=== PATIENT | male | born 1990 | race Caucasian/White ===

== ENCOUNTER 2019-03-02 10:43 | Emergency (ER) | payer OTHER ==
[2019-03-02] MEDS ORDERED: Lactated Ringers 1,000 ML IV ONE (10:49)
[2019-03-02] MEDS ORDERED: Ondansetron 4 MG/2 ML SDV IVPUSH ONE (10:49)
[2019-03-02] MEDS ORDERED: Pantoprazole 40 MG Vial IVPUSH ONE (10:49)
[2019-03-02] MEDS ORDERED: Famotidine 20 MG/2 ML SDV IVPUSH ONE (10:49)
--- NOTE | 2019-03-02 10:49 | EDM.PDOC ---
ED HPI GENERAL MEDICAL PROBLEM - General Chief Complaint: Abdominal Pain Stated Complaint: Abd pain Time Seen by Provider: 03/02/19 10:45 Source of Information: Reports: Patient, Old Records ([facility] chart/EMR including EMR records from [place]) History Limitations: Reports: No Limitations - History of Present Illness INITIAL COMMENTS - FREE TEXT/NARRATIVE: Patient was brought to the emergency room via private automobile by his paternal uncle for evaluation of 10/10 bilateral upper quadrant 10/10 abdominal pain and cramping with symptoms starting at about 3 AM this morning. He has had some moderate nausea with 5 episodes of emesis since earlier this morning. He did have a normal bowel movement at 9 PM yesterday evening, however. Patient has apparently had a two-year history of monthly attacks similar to the above episode with only limited workup to this point including abdominal ultrasound in December as below. Note that the patient did take a stool softener at 5 AM morning with no other medications to this point. No recent history of other abdominal pain, heartburn, diarrhea, melena, gross hematochezia, or any food intolerance, including fatty foods, etc.. He did eat a BLT sandwich and sweet corn yesterday evening. He denies any gross hematuria, colic, or other UTI symptoms. The patient denies any chest pain/pressure, heart flutter, dizziness, orthostasis, orthopnea, diaphoresis, paresthesias, recent decreased exercise tolerance, or any other anginal-type symptoms. The patient also denies any recent fever, cough, wheezing, dyspnea, etc.. No history of food poisoning or known exposure to infection. Onset: Today Onset Date: 03/02/19 Onset Time: 03:00 Duration: Constant, Getting Worse Location: Reports: Abdomen. Denies: Head, Face, Neck, Chest, Back, Upper Extremity, Left, Upper Extremity, Right, Radiates to Quality: Reports: Same as Previous Episode, Stabbing, Other (Cramping) Severity: Severe Improves with: Reports: None Worsens with: Reports: None Context: Reports: Other (As above). Denies: Sick Contact, Trauma Associated Symptoms: Reports: Nausea/Vomiting. Denies: Confusion, Chest Pain, Cough, Diaphoresis, Fever/Chills, Headaches, Loss of Appetite, Malaise, Seizure , Shortness of Breath, Syncope, Weakness Treatments [employer] DES[employer]: Reports: Other Medication(s) (As above) Abdominal Pain Score (Numeric/FACES): 10 - Related Data Allergies Allergy/AdvReac Type Severity Reaction Status Date / Time No Known Allergies Allergy Verified 03/02/19 10:45 Home Meds: Home Meds . [No Known Home Meds] 03/02/19 [History] Past Medical History HEENT History: Reports: None. Denies: Allergic Rhinitis, Hard of Hearing, Impaired Vision, Otitis Media, Retinal Detachment Cardiovascular History: Reports: None, Other (See Below). Denies: Afib, Aneurysm, Arrhythmia, Blood Clots/VTE/DVT, CAD, Heart Failure, Heart Murmur, High Cholesterol, Hypertension, Syncope Other Cardiovascular History: He does not know his cholesterol status with fatty liver as below. Respiratory History: Reports: None. Denies: Asthma, Bronchitis, Recurrent, COPD , Intubation, Previous, PE, Pneumonia, Recurrent, Pneumothorax, Sleep Apnea Gastrointestinal History: Reports: Other (See Below). Denies: Bowel Obstruction , Celiac Disease, Cholelithiasis, Fecal Incontinence, Gastritis, GERD, GI Bleed , Hepatitis, Hiatal Hernia, Inflammatory Bowel Disease, Irritable Bowel Syndrome , Jaundice, Pancreatitis, PUD Other Gastrointestinal History: Chronic nonspecific abdominal pain. Fatty liver. Genitourinary History: Reports: None. Denies: Acute Renal Failure, BPH, Chronic Renal Insuffiency, Renal Calculus, STD, UTI, Recurrent Musculoskeletal History: Reports: None. Denies: Arthritis, Back Pain, Chronic, Fracture, Gout, Neck Pain, Chronic, Osteoarthritis, RA, SLE Neurological History: Reports: None, Headaches, Chronic. Denies: Concussion, CVA, Head Trauma, Migraines, MS, Neuropathy, Peripheral, Parkinson's, Seizure, TIA Psychiatric History: Reports: Addiction, Anxiety, Depression, Other (See Below) . Denies: Abuse, Victim of, ADD, ADHD, Psych Hospitalization(s), Suicide Attempt, Suicidal Ideation Other Psychiatric History: Probable alcohol abuse since age 23 although no history of DWI, alcohol treatment, etc. Note he did decrease his alcohol intake since he has been having abdominal symptoms during the last couple of months. Anxiety depression disorder with no previous medical treatment. Endocrine/Metabolic History: Reports: None. Denies: Diabetes, Type I, Diabetes , Type II, Diabetes Mellitus, Type 3c, Hypothyroidism, IDDM Hematologic History: Denies: Anemia, Blood Transfusion(s), Iron Deficiency Immunologic History: Reports: None. Denies: AIDS, HIV, SLE Oncologic (Cancer) History: Reports: None. Denies: Basal Cell Carcinoma, Hodgkin's Lymphoma, Leukemia, Lymphoma, Malignant Melanoma, Non-Hodgkin's Lymphoma, Prostate, Squamous Cell Carcinoma Dermatologic History: Denies: Eczema, Psoriasis - Infectious Disease History Infectious Disease History: Reports: None (Patient is uncertain) - Past Surgical History Head Surgeries/Procedures: Reports: None HEENT Surgical History: Reports: Oral Surgery, Other (See Below). Denies: Adenoidectomy, Eye Surgery, Laser Surgery, LASIK, Myringotomy w Tube(s), Naso- Sinus Surgery, Tonsillectomy Other HEENT Surgeries/Procedures: [place] teeth extraction at age 18 Cardiovascular Surgical History: Reports: None. Denies: Varicose Respiratory Surgical History: Reports: None. Denies: Thoracentesis GI Surgical History: Reports: None. Denies: Appendectomy, Cholecystectomy, Colonoscopy, EGD, Hernia, Abdominal, Hernia, Inguinal, Hernia Repair/Other Male Surgical History: Reports: Circumcision, Other (See Below). Denies: Vasectomy Other Male Surgeries/Procedures: Circumcision as an infant Endocrine Surgical History: Reports: None. Denies: Thyroid Biopsy Neurological Surgical History: Reports: None. Denies: C-Spine, Discectomy, Laminectomy, Lumbar Spine, Sacral Spine, Scoliosis, Spinal Fusion, Thoracic Spine, Vertebroplasty Musculoskeletal Surgical History: Reports: None. Denies: Arthroscopic Procedure , Carpal Tunnel, Ganglion Cyst, Joint Replacement, ORIF, Shoulder Surgery Oncologic Surgical History: Reports: None Dermatological Surgical History: Reports: None - Past Imaging History Past Imaging History: Reports: Ultrasound (Right upper quadrant abdominal ultrasound on 12/28/18.) Social & Family History - Family History GI: Reports: Other (See Below). Denies: Celiac Disease, Colon Polyps, Inflammatory Bowel Disease, Irritable Bowel Syndrome Other GI Family History: Father with hemicolectomy for unknown reason - Tobacco Use Smoking Status *Q: Current Every Day Smoker Tobacco Use Within Last Twelve Months: Snuff/Dip Years of Tobacco use: 13 Packs/Tins Daily: 0.5 Packs/Tins Daily Comment: 0.5 cans per day Used Tobacco, but Quit: No Smoking Cessation Information Provided To Patient: Yes Second Hand Smoke Exposure: No Second Hand Smoke Education Provided: No - Alcohol Use Alcohol Use History: Yes Days Per Week of Alcohol Use: 7 Number of Drinks Per Day: 5 Total Drinks Per Week: 35 Total Drinks Per Week Comment: Usually beer or mixed. Note probable alcohol abuse as above. Alcohol Use in Last Twelve Months: Yes Alcohol Use Frequency: Binges, Daily - Recreational Drug Use Recreational Drug Use: Yes Drug Use in Last 12 Months: No Recreational Drug Type: Reports: Marijuana/Hashish (Used marijuana in his early 20s.). 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 ED EXAM, GI/ABD - Physical Exam Exam: See Below Exam Limited By: No Limitations General Appearance: Alert, WD/WN, No Apparent Distress Eyes: Bilateral: Normal Appearance (No nystagmus), EOMI (PERRLA) Ears: Normal External Exam, Normal Canal, Hearing Grossly Normal, Normal TMs Nose: Normal Inspection, Normal Mucosa, No Blood Throat/Mouth: Normal Inspection, Normal Lips, Normal Teeth, Normal Gums, Normal Oropharynx, Normal Voice, No Airway Compromise. No: Dysphagia, Perioral Cyanosis Head: Atraumatic, Normocephalic. No: Facial Swelling, Facial Tenderness, Sinus Tenderness Neck: Normal Inspection, Supple, Non-Tender, Full Range of Motion. No: Lymphadenopathy (L), Lymphadenopathy (R), Thyromegaly Respiratory/Chest: No Respiratory Distress, Lungs Clear, Normal Breath Sounds, No Accessory Muscle Use, Chest Non-Tender. No: Pleural Rub, Retractions Cardiovascular: Normal Peripheral Pulses, Regular Rate, Rhythm, No Edema, No Gallop, No JVD, No Murmur, No Rub. No: Gallop/S3, Gallop/S4, Friction Rub GI/Abdominal Exam: Normal Bowel Sounds, No Organomegaly, No Distention, No Abnormal Bruit, No Mass, Pelvis Stable, Tender (Mild palpation pain in the upper quadrants bilaterally right greater than left). No: Guarding, Rigid, Rebound, Hernia (Male) Exam: Deferred Rectal (Males) Exam: Normal Exam, Normal Rectal Tone, Prostate Normal, Heme - Stool Back Exam: Normal Inspection, Full Range of Motion. No: CVA Tenderness (L), CVA Tenderness (R), Muscle Spasm Extremities: Normal Inspection, Normal Range of Motion, Non-Tender, No Pedal Edema, Normal Capillary Refill. No: Bianca's Sign Neurological: Alert, Oriented, CN II-XII Intact, Normal Cognition, Normal Gait, No Motor/Sensory Deficits Psychiatric: Normal Affect, Normal Mood Skin Exam: Warm, Dry, Intact, Normal Color, No Rash Lymphatic: No Adenopathy Course - Vital Signs Last Recorded V/S: Last Vital Signs Temp 36.4 C 03/02/19 10:46 Pulse 63 03/02/19 10:46 Resp 18 03/02/19 10:46 BP 131/78 03/02/19 15:54 Pulse Ox 100 03/02/19 10:46 Vital Signs - 24 hr 03/02/19 03/02/19 10:46 15:54 Temperature [ 36.4 C 36.2 C Oral] Pulse, 63 73 Peripheral [ Right Pulse Oximetry] Respiratory 18 14 Rate Blood Pressure 139/89 131/78 [Right Upper Arm] O2 Sat by Pulse 100 Oximetry - Orders/Labs/Meds Orders: Active Orders 24 hr Category Date Time Status Communication Order [RC] ROUTINE Care 03/02/19 15:19 Active Peripheral IV Care [RC] . DIRECTED Care 03/02/19 10:49 Active Nothing Per Oral Diet [DIET] Diet 03/02/19 Breakfast Active Abdomen Pelvis w Cont [CT] Stat Exams 03/02/19 12:05 Taken Abdomen Series w Chest 1V [CR] Stat Exams 03/02/19 10:49 Taken CULTURE URINE [RM] Stat Lab 03/02/19 10:49 Ordered Sodium Chloride 0.9% [Saline Flush] Med 03/02/19 10:49 Active 10 ml FLUSH ASDIRECTED PRN Obtain Past Medical Record [OM.PC] Urgent Oth 03/02/19 10:49 Active Peripheral IV Insertion Adult [OM.PC] Stat Oth 03/02/19 10:49 Ordered Resuscitation Status Stat Resus Stat 03/02/19 10:49 Ordered Medication Orders Sodium Chloride (Saline Flush) 10 ml FLUSH ASDIRECTED PRN PRN Reason: Keep Vein Open Last Admin: 03/02/19 15:30 Dose: 10 ml Admin: 03/02/19 12:50 Dose: 10 ml Admin: 03/02/19 11:14 Dose: 10 ml Labs: Laboratory Tests 03/02/19 03/02/19 03/02/19 Range/Units 11:04 11:08 11:08 WBC 14.7 H (4.0-10.2) K/uL RBC 4.90 (4.33-5.41) M/uL Hgb 15.9 (13.1-16.8) g/dL Hct 45.5 (39.0-49.0) % MCV 92.9 (84.0-98.0) fL MCH 32.4 (28.2-33.3) pg MCHC 34.9 (31.7-36.0) g/dL RDW 12.3 (11.2-14.1) % Plt Count 186 (150-350) K/uL Neut % (Auto) 91.4 H (45.0-80.0) % Lymph % (Auto) 5.5 L (10.0-50.0) % Nye % (Auto) 3.0 (2.0-14.0) % Eos % (Auto) 0.0 (0.0-5.0) % Baso % (Auto) 0.1 (0.0-2.0) % Neut # (Auto) 13.41 H (1.40-7.00) K/uL Lymph # (Auto) 0.81 (0.50-3.50) K/uL Nye # (Auto) 0.44 (0.00-1.00) K/uL Eos # (Auto) 0.00 (0.00-0.50) K/uL Baso # (Auto) 0.02 (0.00-0.20) K/uL PT 10.6 (9.5-12.0) SEC INR 1.0 APTT 27.9 (21.0-31.3) SEC Sodium (136-145) mmol/L Potassium (3.5-5.1) mmol/L Chloride (98-107) mmol/L Carbon Dioxide (21.0-32.0) mmol/L BUN (7-18) mg/dL Creatinine (0.51-1.17) mg/dL Est Cr Clr Drug Dosing mL/min Estimated GFR (MDRD) mL/min Glucose (74-106) mg/dL Lactic Acid (0.4-2.0) mmol/L Uric Acid (2.6-7.2) mg/dL Calcium (8.5-10.1) mg/dL Magnesium (1.8-2.4) mg/dL Total Bilirubin (0.2-1.0) mg/dL AST (15-37) U/L ALT (12-78) U/L Alkaline Phosphatase (46-116) IU/L Total Protein (6.4-8.2) g/dL Albumin (3.4-5.0) g/dL Amylase (25-115) U/L Lipase (73-393) U/L Specimen Type Urinvoid Urine Color Dark yellow Urine Appearance Clear Urine pH 8.5 (5.0-9.0) Ur Specific Hudson 1.015 (1.005-1.030) Urine Protein 30 H (NEGATIVE) mg/dL Urine Glucose (UA) Negative (NEGATIVE) mg/dL Urine Ketones >=160 H (NEGATIVE) mg/dL Urine Occult Blood Negative (NEGATIVE) Urine Nitrite Negative (NEGATIVE) Urine Bilirubin Negative (NEGATIVE) Urine Urobilinogen 0.2 (0.2-1.0) E.U./dL Ur Leukocyte Esterase Negative (NEGATIVE) Urine RBC 0-5 /HPF Urine WBC 0-5 /HPF Ur Epithelial Cells Few /LPF Urine Bacteria Few (NONE TO FEW) /HPF Urine Mucus Moderate H (NEGATIVE) /LPF 03/02/19 03/02/19 Range/Units 11:08 11:08 WBC (4.0-10.2) K/uL RBC (4.33-5.41) M/uL Hgb (13.1-16.8) g/dL Hct (39.0-49.0) % MCV (84.0-98.0) fL MCH (28.2-33.3) pg MCHC (31.7-36.0) g/dL RDW (11.2-14.1) % Plt Count (150-350) K/uL Neut % (Auto) (45.0-80.0) % Lymph % (Auto) (10.0-50.0) % Nye % (Auto) (2.0-14.0) % Eos % (Auto) (0.0-5.0) % Baso % (Auto) (0.0-2.0) % Neut # (Auto) (1.40-7.00) K/uL Lymph # (Auto) (0.50-3.50) K/uL Nye # (Auto) (0.00-1.00) K/uL Eos # (Auto) (0.00-0.50) K/uL Baso # (Auto) (0.00-0.20) K/uL PT (9.5-12.0) SEC INR APTT (21.0-31.3) SEC Sodium 138 (136-145) mmol/L Potassium 3.9 (3.5-5.1) mmol/L Chloride 103 (98-107) mmol/L Carbon Dioxide 23.7 (21.0-32.0) mmol/L BUN 12 (7-18) mg/dL Creatinine 0.97 (0.51-1.17) mg/dL Est Cr Clr Drug Dosing 124.44 mL/min Estimated GFR (MDRD) > 60 mL/min Glucose 127 H (74-106) mg/dL Lactic Acid 1.0 (0.4-2.0) mmol/L Uric Acid 6.2 (2.6-7.2) mg/dL Calcium 9.4 (8.5-10.1) mg/dL Magnesium 1.8 (1.8-2.4) mg/dL Total Bilirubin 1.3 H (0.2-1.0) mg/dL AST 43 H (15-37) U/L ALT 45 (12-78) U/L Alkaline Phosphatase 53 (46-116) IU/L Total Protein 8.1 (6.4-8.2) g/dL Albumin 4.7 (3.4-5.0) g/dL Amylase 33 (25-115) U/L Lipase 100 (73-393) U/L Specimen Type Urine Color Urine Appearance Urine pH (5.0-9.0) Ur Specific Hudson (1.005-1.030) Urine Protein (NEGATIVE) mg/dL Urine Glucose (UA) (NEGATIVE) mg/dL Urine Ketones (NEGATIVE) mg/dL Urine Occult Blood (NEGATIVE) Urine Nitrite (NEGATIVE) Urine Bilirubin (NEGATIVE) Urine Urobilinogen (0.2-1.0) E.U./dL Ur Leukocyte Esterase (NEGATIVE) Urine RBC /HPF Urine WBC /HPF Ur Epithelial Cells /LPF Urine Bacteria (NONE TO FEW) /HPF Urine Mucus (NEGATIVE) /LPF Urine specimen set up for culture and sensitivity Microbiology 03/02/19 10:49 Stool Occult Blood (AMELIA) - Final Stool / Feces NEGATIVE OCCULT BLOOD REFERENCE RANGE: NEGATIVE Meds: Medications Generic Name Dose Route Start Last Admin Trade Name Freq PRN Reason Stop Dose Admin Sodium Chloride 10 ml 03/02/19 10:49 03/02/19 15:30 Saline Flush FLUSH 10 ml ASDIRECTED PRN Administration Keep Vein Open Discontinued Medications Generic Name Dose Route Start Last Admin Trade Name Freq PRN Reason Stop Dose Admin Diatrizoate Meglum/Diatrizoate Sod 30 ml 03/02/19 12:12 03/02/19 14:41 Gastrografin 37% PO 03/02/19 12:13 30 ml ONETIME ONE Administration Famotidine 40 mg 03/02/19 10:49 03/02/19 11:12 Pepcid IVPUSH 03/02/19 10:50 40 mg ONETIME ONE Administration Lactated Ringer's 1,000 mls @ 999 mls/hr 03/02/19 10:49 03/02/19 11:11 Ringers, Lactated IV 03/02/19 11:49 999 mls/hr .BOLUS ONE Administration Ceftriaxone Sodium 1 gm/ 100 mls @ 200 mls/hr 03/02/19 12:06 03/02/19 12:50 Sodium Chloride IV 03/02/19 12:35 200 mls/hr ONETIME ONE Administration Metronidazole 500 mg/ Premix 100 mls @ 100 mls/hr 03/02/19 12:07 03/02/19 12: 50 IV 03/02/19 13:06 100 mls/hr ONETIME ONE Administration Iopamidol 100 ml 03/02/19 14:00 03/02/19 14:41 Isovue-300 (61%) IVPUSH 03/02/19 14:01 100 ml ONETIME ONE Administration Ondansetron HCl 4 mg 03/02/19 10:49 03/02/19 11:12 Zofran IVPUSH 03/02/19 10:50 4 mg ONETIME ONE Administration Ondansetron HCl Confirm 03/02/19 15:29 03/02/19 15:30 Zofran Administered 03/02/19 15:30 4 mg Dose Administration 4 mg .ROUTE .STK-MED ONE Pantoprazole Sodium 40 mg 03/02/19 10:49 03/02/19 11:13 Protonix Iv IVPUSH 03/02/19 10:50 40 mg ONETIME ONE Administration - Radiology Interpretation Free Text/Narrative:: Acute abdominal x-ray shows a nonspecific bowel gaseous pattern with moderate diffuse stool with no free air, ileus, obstruction, free air, intra-abdominal calcifications, cardiomegaly, CHF, pulmonary infiltrates, etc. Telephone consultation at 15:00 hours with the radiology department at [facility] with preliminary verbal report of CT scan of the abdomen and pelvis with IV and oral contrast. Positive findings for acute appendicitis without rupture, abscess, etc. CT Results Date: 03/02/19 CT Results Time: 15:00 Departure - Departure Time of Disposition: 15:55 Disposition: DC/Tfer to [facility] 02 Condition: Good Clinical Impression: Elevated LFTs, Tobacco abuse counseling, Mixed anxiety depressive disorder Abdominal pain Qualifiers: Abdominal location: right upper quadrant Qualified Code(s): R10.11 - Right upper quadrant pain Appendicitis Qualifiers: Appendicitis type: acute appendicitis Acute appendicitis type: unspecified acute appendicitis type Qualified Code(s): K35.80 - Unspecified acute appendicitis - Discharge Information *PRESCRIPTION DRUG MONITORING PROGRAM REVIEWED*: Not Applicable *COPY OF PRESCRIPTION DRUG MONITORING REPORT IN PATIENT HEMALATHA: Not Applicable Referrals: Marco Irby MD [Primary Care Provider] - Forms: ED Department Discharge, Interfacility Transfer EMTALA Additional Instructions: 1. STRICT nothing to eat or drink until otherwise directed by your [place] physicians 2. Family member is to drive you KAYKAY to [facility] for direct admission and planned surgery today 3. Stop all tobacco use KAYKAY as directed/per provided information and consider contacting Quit LIne, etc.. 4. Decrease alcohol intake as discussed with fasting lipid profile in the near future recommended 5. Immediately after this visit verify that your cellular telephone's voicemail has been activated and is empty. Also verify that your home telephone's answering machine is operating properly and has space to receive messages. Note that it is sometimes necessary for us to be able to contact you at a later date to discuss your medical care. 6. Please remember that we are ALWAYS here for you and want to answer any questions you may have. Feel free to call the hospital any time and we call you back KAYKAY. - Problem List & Annotations (1) Appendicitis SNOMED Code(s): 13646731 Code(s): K37 - UNSPECIFIED APPENDICITIS Status: Acute Priority: High Current Visit: Yes Onset Date: 03/02/19 Annotation/Comment:: CT scan of the results as above. Telephone consultation at 15:[address] Blankenship, general surgeon at [facility], who does accept the patient for direct admission and probable surgery later today. No further treatment recommendations given. Per patient's request private automobile transfer with patient discharge with saline lock in place. IV Pepcid, IV Protonix, IV Flagyl, and IV Rocephin were given in the emergency room. Last oral intake at 18:00 hours yesterday evening. Qualifiers: Appendicitis type: acute appendicitis Acute appendicitis type: unspecified acute appendicitis type Qualified Code(s): K35.80 - Unspecified acute appendicitis (2) Abdominal pain SNOMED Code(s): 81562122 Code(s): R10.9 - UNSPECIFIED ABDOMINAL PAIN Status: Acute Current Visit: Yes Onset Date: ~03/02/19 Annotation/Comment:: As above Qualifiers: Abdominal location: right upper quadrant Qualified Code(s): R10.11 - Right upper quadrant pain (3) Elevated LFTs SNOMED Code(s): 610296736, 771108173 Code(s): R94.5 - ABNORMAL RESULTS OF LIVER FUNCTION STUDIES Status: Acute Priority: Medium Current Visit: Yes Onset Date: 03/02/19 Annotation/ Comment:: Possibly secondary to fatty liver and alcohol intake. Close follow-up by regular providers as per discharge instructions, including dietary changes, etc. Recommend lipid panel in the near future. (4) Tobacco abuse counseling SNOMED Code(s): 455912750, 152836958, 130619053 Code(s): Z71.6 - TOBACCO ABUSE COUNSELING Status: Chronic Priority: Medium Current Visit: Yes Annotation/Comment:: Tobacco cessation strongly encouraged with information provided at discharge. (5) Mixed anxiety depressive disorder SNOMED Code(s): 935826650 Code(s): F41.8 - OTHER SPECIFIED ANXIETY DISORDERS Status: Chronic Priority: Medium Current Visit: Yes Annotation/Comment:: Stable by patient history. Note alcohol use history as above. Continue to observe closely by regular provider. - Problem List Review Problem List Initiated/Reviewed/Updated: Yes - My Orders Last 24 Hours: My Active Orders 03/02/19 10:49 Peripheral IV Care [RC] . DIRECTED Abdomen Series w Chest 1V [CR] Stat CULTURE URINE [RM] Stat Sodium Chloride 0.9% [Saline Flush] 10 ml FLUSH ASDIRECTED PRN Obtain Past Medical Record [OM.PC] Urgent Peripheral IV Insertion Adult [OM.PC] Stat Resuscitation Status Stat 03/02/19 12:05 Abdomen Pelvis w Cont [CT] Stat 03/02/19 15:19 Communication Order [RC] ROUTINE 03/02/19 Breakfast Nothing Per Oral Diet [DIET] - Assessment/Plan Last 24 Hours: My Active Orders 03/02/19 10:49 Peripheral IV Care [RC] . DIRECTED Abdomen Series w Chest 1V [CR] Stat CULTURE URINE [RM] Stat Sodium Chloride 0.9% [Saline Flush] 10 ml FLUSH ASDIRECTED PRN Obtain Past Medical Record [OM.PC] Urgent Peripheral IV Insertion Adult [OM.PC] Stat Resuscitation Status Stat 03/02/19 12:05 Abdomen Pelvis w Cont [CT] Stat 03/02/19 15:19 Communication Order [RC] ROUTINE 03/02/19 Breakfast Nothing Per Oral Diet [DIET] Assessment:: As above Plan: As above. Extensive precautions were given to the patient, who is in agreement with the treatment plan. See Patient Instructions for further treatment and plan. Private automobile transfer as above.
[2019-03-02] MEDS: Sodium Chloride 0.9% 10 ML Syringe FLUSH PRN ×3 (11:14→15:30)
[2019-03-02 11:43] LABS: CHLORIDE,CL 103 mmol/L (98-107); SODIUM,NA 138 mmol/L (136-145)
[2019-03-02] MEDS ORDERED: cefTRIAXone 1 GM in Sodium Chloride 0.9% 100 ML IV ONE (12:06)
[2019-03-02] MEDS ORDERED: metroNIDAZOLE/Normal Saline 500 MG in Premix Bag 1 BAG IV ONE (12:07)
[2019-03-02] MEDS ORDERED: Diatrizoate Meglumine/Diatrizoate Sodium 37% 30 ML Bottle PO ONE (12:12)
[2019-03-02] MEDS ORDERED: Iopamidol 612 MG/ML 100 ML Bottle IVPUSH ONE (14:00)
[2019-03-02] MEDS ORDERED: Ondansetron 4 MG/2 ML SDV ONE (15:29)
== END 2019-03-02 15:55 ==
LOC: LL.ED 10:43
DX: K35.80 Unspecified acute appendicitis (principal); F41.8 Other specified anxiety disorders; R94.5 Abnormal results of liver function studies; F17.210 Nicotine dependence, cigarettes, uncomplicated; Z71.6 Tobacco abuse counseling
CPT/HCPCS: 36415; 74022; 74177; 80053; 81001; 82150; 82272; 83605; 83690; 83735; 84550; 85025; 85610; 85730; 87086; 96361; 96374; 96375; 99285; C9113; J0696; J2405; J3490; J7050; J7120; Q9963; Q9967